=== PATIENT | female | born 1985 | race Caucasian/White ===

== ENCOUNTER → 2019-07-16 15:37 | Outpatient (BNVA) | payer BC, SELFPAY | PROVIDERS: Visit Provider Internal Medicine | DX: B18.2 Chronic viral hepatitis C (principal); R76.8 Other specified abnormal immunological findings in serum | CPT/HCPCS: 36415; 80053; 85025 ==

== ENCOUNTER 2019-08-03 10:34 | Outpatient (CLI) | payer BC, SELFPAY ==
--- NOTE | 2019-08-03 10:15 | US_ITS ---
WS: [id number] ABDOMINAL ULTRASOUND LIMITED REASON FOR VISIT: l TECHNIQUE: Grayscale and Doppler ultrasound examination of the abdomen. FINDINGS: Pancreas: Prominent uncinate process of the hand is seen. The remaining pancreas appear to be normal. Abdominal aorta and IVC: Within normal limits. Liver: Liver measures 16.7 cm in length. Normal hepatopedal circulation the portal system. Normal ech otexture of the liver. Gallbladder: Status post cholecystectomy. Right kidney: Right kidney measures 12.5 cm x 5.4 cm x 5.4 cm. . No hydronephrosis no stones. US/US liver [id number] IMPRESSION: Status post cholecystectomy The remaining abdomen appears to be normal.
== END 2019-08-03 10:35 | disposition home or self-care (01) ==
LOC: RAD 10:36
PROVIDERS: Visit Provider Internal Medicine
DX: B18.2 Chronic viral hepatitis C (principal); R76.8 Other specified abnormal immunological findings in serum; Z90.49 Acquired absence of other specified parts of digestive tract
CPT/HCPCS: 76705

== ENCOUNTER → 2022-04-17 10:54 | Outpatient (BNVA) | payer BC, SELFPAY | PROVIDERS: Visit Provider Emergency Medicine | DX: R68.89 Other general symptoms and signs (principal); J11.1 Influenza due to unidentified influenza virus with other respiratory manifestations | CPT/HCPCS: 87426 ==